=== PATIENT | female | born 1980 | race Caucasian/White ===

== ENCOUNTER 2017-11-28 18:04 | Emergency (ER) | payer MEDICAID ==
[~2017-11-28] VITALS: Ht 162.6 cm; Wt 77.1 kg
[2017-11-28 18:33] VITALS: Ht 162.6 cm; Wt 77.1 kg
[2017-11-28 21:56] LABS: PLATELET COUNT 367 x10^3mcL (130-400)
[2017-11-28 22:05] LABS: RED CELL DISTRIBUTION WIDTH 16.4 % (11.5-14.5)
[2017-11-28 22:08] LABS: CALCIUM 8.9 mg/dL (8.5-10.1); CARBON DIOXIDE 27.7 mmol/L (21-32); CHLORIDE SERUM 102 mmol/L (98-107); CREATININE SERUM 0.5 mg/dL (0.6-1.0); GFR1 > 60 mL/min; GLUCOSE SERUM 108 mg/dL (74-106); POTASSIUM SERUM 3.7 mmol/L (3.5-5.1); SODIUM SERUM 137 mmol/L (136-145)
[2017-11-28 22:10] LABS: ATYPICAL LYMPH 2 %; MONOCYTE 6 % (0-7); SEGMENTED NEUTROPHILS 80 % (37-75)
[2017-11-28 22:11] LABS: PLATELET MORPHOLOGY PLATELETS NORMAL; rbc morphology (normal/abnorm) ABNORMAL (NORMAL)
[2017-11-28 22:12] LABS: ALKALINE PHOSPHATASE 440 U/L (46-116); ALT/SGPT 200 U/L (14-59); AST/SGOT 128 U/L (15-37); BILIRUBIN TOTAL 2.83 mg/dL (0.20-1.00); LIPASE 152 IU/L (73-393); TOTAL PROTEIN, SERUM 7.4 g/dL (6.4-8.2)
[2017-11-28 22:13] LABS: ALBUMIN 3.2 g/dL (3.4-5.0)
[2017-11-29 00:40] LABS: microscopic required? YES; urine erythrocyte NEGATIVE (NEGATIVE)
[2017-11-29 02:28] VITALS: BP 98/60
== END 2017-11-29 02:28 | disposition home or self-care (01) ==
LOC: ED 18:04
PROVIDERS: Emergency Medicine
DX: N39.0 Urinary tract infection, site not specified (principal); Z90.49 Acquired absence of other specified parts of digestive tract
CPT/HCPCS: J0696; J2270; J2405; J3490; Q0092